=== PATIENT | male | born 1980 | race Caucasian/White ===

== ENCOUNTER 2021-06-05 19:49 | Emergency (ER) | payer BC ==
[2021-06-05] MEDS ORDERED: Acetaminophen/oxyCODONE 325-5 MG Tab PO ONE (21:14)
== END 2021-06-05 23:20 | disposition home or self-care (01) ==
LOC: JD.ED 19:49 → SUPCPDRO 19:49 → JD.ED 23:20
DX: M87.9 Osteonecrosis, unspecified (principal); J44.9 Chronic obstructive pulmonary disease, unspecified; Z72.0 Tobacco use; Z86.16 Personal history of COVID-19
CPT/HCPCS: 73502; 99283; A9270; 99284

== ENCOUNTER 2021-08-17 09:52 | Day surgery (SDC) | payer BC ==
[~2021-08-17 09:52] MED LIST: Acetaminophen 325 MG Tab PO SCH; Albuterol 0.083% 2.5 MG/3 ML Neb Soln NEB ONE; Lidocaine 1%/Sod Bicarbonate in NS 8.4% 1 ML Syringe IDERM PRN; Morphine 8 MG, EPINEPHrine 0.3 MG, Cefuroxime 750 MG, Ketorolac 30 MG, Sodium Chloride ... PRN; Pregabalin 25 MG Cap PO SCH; Sodium Chloride 0.9% 10 ML Syringe FLUSH PRN; Sodium Chloride 0.9% 10 ML Syringe FLUSH SCH; oxyCODONE ER 10 MG TAB.ER PO SCH
[2021-08-17] MEDS: Lactated Ringers 1,000 ML IV SCH ×2 (10:20→10:54)
[2021-08-17] MEDS ORDERED: Albuterol 0.083% 2.5 MG/3 ML Neb Soln NEB ONE (11:00)
[2021-08-17] MEDS ORDERED: Propofol 200 MG/20 ML SDV ONE (12:48)
[2021-08-17] MEDS ORDERED: Ketorolac 30 MG/ML SDV ONE (12:48)
[2021-08-17] MEDS ORDERED: Ondansetron 4 MG/2 ML SDV ONE (12:48)
[2021-08-17] MEDS ORDERED: Lactated Ringers 1,000 ML ONE (12:48)
[2021-08-17] MEDS ORDERED: Lidocaine 1% 4 ML ONE (12:48)
[2021-08-17] MEDS ORDERED: fentaNYL 100 MCG/2 ML SDV ONE (12:49)
[2021-08-17] MEDS ORDERED: Ketamine 500 mg/10 ML MDV ONE (12:50)
[2021-08-17] MEDS ORDERED: Midazolam 1 MG/ML 2 ML SDV ONE ×2 (12:50→13:15)
[2021-08-17] MEDS ORDERED: Midazolam 1 MG/ML 2 ML SDV IVPUSH PRN (13:23)
[2021-08-17] MEDS ORDERED: ePHEDrine 50 MG/ML SDV IVPUSH PRN (13:23)
[2021-08-17] MEDS ORDERED: Albuterol 0.083% 2.5 MG/3 ML Neb Soln NEB PRN (13:23)
[2021-08-17] MEDS ORDERED: Ondansetron 4 MG/2 ML SDV IVPUSH PRN (13:23)
[2021-08-17] MEDS ORDERED: diphenhydrAMINE 50 MG/ML SDV IVPUSH PRN (13:23)
[2021-08-17] MEDS ORDERED: HYDROmorphone 0.5 MG/0.5 ML Syringe IVPUSH PRN (13:23)
[2021-08-17] MEDS ORDERED: fentaNYL 100 MCG/2 ML SDV IVPUSH PRN (13:23)
[2021-08-17] MEDS: Vancomycin 1 GM SDV ONE ×2 (13:47→14:14)
[2021-08-17] MEDS ORDERED: ceFAZolin 1 GM Vial ONE ×2 (14:11)
[2021-08-17] MEDS ORDERED: oxyCODONE 5 MG Tab PO PRN (15:06)
== END 2021-08-17 18:00 | disposition home or self-care (01) ==
LOC: JD.SDS 09:52
PROVIDERS: ATTEND Orthopaedic Surgery
DX: M87.052 Idiopathic aseptic necrosis of left femur (principal); M16.12 Unilateral primary osteoarthritis, left hip; F32.A Depression, unspecified; I10 Essential (primary) hypertension; J44.9 Chronic obstructive pulmonary disease, unspecified; E66.9 Obesity, unspecified; Z68.33 Body mass index [BMI] 33.0-33.9, adult; Z87.891 Personal history of nicotine dependence; Z91.048 Other nonmedicinal substance allergy status; Z79.51 Long term (current) use of inhaled steroids; Z79.899 Other long term (current) drug therapy
CPT/HCPCS: 0055T; 27130; 36415; 73501; 86850; 86900; 86901; 97110; 97116; 97161; A9270; C1713; C1776; J0171; J0690; J0697; J1885; J2250; J2270; J2405; J2704; J3010; J3370; J3490; J7120; 01214

== ENCOUNTER 2022-08-07 07:42 | Day surgery (SDC) | payer BC ==
[~2022-08-07 07:42] MED LIST changes: -Albuterol 0.083% 2.5 MG/3 ML Neb Soln NEB ONE; +Lactated Ringers 1,000 ML IV SCH
[2022-08-07] MEDS ORDERED: Tranexamic Acid 1,000 MG/10 ML Vial ONE (07:47)
[2022-08-07] MEDS ORDERED: Vancomycin 1 GM SDV ONE (07:47)
[2022-08-07] MEDS ORDERED: Lidocaine 1% 4 ML ONE (08:56)
[2022-08-07] MEDS ORDERED: Propofol 200 MG/20 ML SDV ONE ×3 (08:57→11:24)
[2022-08-07] MEDS ORDERED: fentaNYL 100 MCG/2 ML SDV ONE (08:57)
[2022-08-07] MEDS ORDERED: ceFAZolin 2 GM Vial ONE (08:57)
[2022-08-07] MEDS ORDERED: Ondansetron 4 MG/2 ML SDV ONE (10:20)
[2022-08-07] MEDS ORDERED: Ketamine 500 mg/10 ML MDV ONE (10:32)
[2022-08-07] MEDS ORDERED: HYDROmorphone 0.5 MG/0.5 ML Syringe IVPUSH PRN (10:34)
[2022-08-07] MEDS ORDERED: Ondansetron 4 MG/2 ML SDV IVPUSH PRN (10:34)
[2022-08-07] MEDS ORDERED: Bupivacaine 0.25% 10 ML SDV ONE (11:26)
[2022-08-07] MEDS: fentaNYL 100 MCG/2 ML SDV IVPUSH PRN ×2 (11:41→12:00)
[2022-08-07] MEDS ORDERED: Cyclobenzaprine 10 MG Tab PO SCH (13:43)
[2022-08-07] MEDS ORDERED: oxyCODONE 5 MG Tab PO SCH (13:45)
== END 2022-08-07 15:45 | disposition home or self-care (01) ==
LOC: JD.SDS 07:42
PROVIDERS: ATTEND Orthopaedic Surgery
DX: M87.051 Idiopathic aseptic necrosis of right femur (principal); F10.10 Alcohol abuse, uncomplicated; E66.9 Obesity, unspecified; J45.40 Moderate persistent asthma, uncomplicated; F32.A Depression, unspecified; F17.290 Nicotine dependence, other tobacco product, uncomplicated; Z87.891 Personal history of nicotine dependence; Z68.32 Body mass index [BMI] 32.0-32.9, adult; Z91.09 Other allergy status, other than to drugs and biological substances; Z79.899 Other long term (current) drug therapy; Z86.16 Personal history of COVID-19; Z79.82 Long term (current) use of aspirin
CPT/HCPCS: 0055T; 27130; 36415; 73501; 86850; 86900; 86901; 97116; 97161; A9270; C1713; C1776; J0171; J0690; J0697; J1885; J2270; J2405; J2704; J3010; J3370; J3490; J7120; 01214